=== PATIENT | female | born 1940 | race Caucasian/White ===

== ENCOUNTER 2016-07-25 10:25 | Emergency (ER) | payer MEDICARE, MEDICAID ==
--- NOTE | 2016-07-25 11:43 | RAD ---
History: Fall with left-sided pain. Comparison: 06/09/2011. Technique: 2 views Findings: Multiple thoracic compression deformities are visualized with evidence of a severe compression of the T8 vertebral body which is progressed since the prior exam of 06/09/2011. A thoracic scoliotic deformity is observed. The heart size is stable. There appears to be a healed deformity of the proximal right humerus. No consolidation, effusion or pneumothorax is visualized. The hilar and mediastinal structures are intact. Impression: 1. Multiple thoracic compression deformities including a severe T8 compression which is progressed since the prior exam of 06/09/2011. 2. A healed fracture deformity of the proximal right humerus. 3. A thoracic scoliotic deformity. 4. No active intrathoracic process.
== END 2016-07-25 12:16 | disposition home or self-care (01) ==
LOC: ED 10:25
DX: S20.219A Contusion of unspecified front wall of thorax, initial encounter (principal); I10 Essential (primary) hypertension; W01.0XXA Fall on same level from slipping, tripping and stumbling without subsequent striking against object, initial encounter; Y92.9 Unspecified place or not applicable

== ENCOUNTER 2016-08-05 11:51 | Emergency (ER) | payer MEDICARE, MEDICAID ==
[2016-08-05] MEDS ORDERED: IOPAMIDOL 370 (76%) IV.SOLN 150 ML IV ONE (11:52)
[2016-08-05 13:04] LABS: ABSOLUTE NEUTROPHIL COUNT 3.5 K/mm3 (1.8-7.7); BASO % 0.6 % (0.2-1.0); EOS # 0.1 (0.0-0.5); HEMATOCRIT 41.1 % (37.0-47.0); HEMOGLOBIN 13.5 gm/l (12.0-16.0); IMM NEUT% 0.4 % (0-1); LYMPH # 1.3 (1.0-4.8); MEAN CELL VOLUME 105.9 fl (81.0-99.0); MEAN CORPUSCULAR HEMOGLOBIN 34.8 pg (27.0-31.0); MEAN CORPUSCULAR HGB CONC 32.8 g/dl (33.0-37.0); MEAN PLATELET VOLUME 9.4 fl (7.4-10.4); MONO # 0.4 (0.0-0.8); MONO % 7.4 % (4-12); NEUT % 65.6 % (43-75); PLATELET COUNT 201 K/mm3 (130-400); RED CELL DISTRIBUTION WIDTH 12.9 % (11.5-14.5)
[2016-08-05 13:18] LABS: PROTHROMBIN TIME 10.5 SECONDS (9.3-11.4)
[2016-08-05] MEDS ORDERED: SODIUM CHLORIDE 0.9% 1,000 ML ONE (13:22)
[2016-08-05 13:27] LABS: ALB/GLOB RATIO 1.4 (>1.0); ALBUMIN 4.7 gm/dL (3.5-5.7); CALCIUM 10.8 mg/dL (8.6-10.3)
--- NOTE | 2016-08-05 14:36 | CT ---
EXAMINATION: Contrast enhanced CT scan of the abdomen and pelvis. CLINICAL INDICATION: Left-sided flank and back pain following fall injury. Initial encounter. COMPARISON: CT scan of the pelvis dated 01/23/2016 was reviewed. TECHNIQUE: Oral contrast: None Following uneventful administration of 125 mL of Isovue 370, intravenously axial images were acquired from just above the domes of the diaphragm to the iliac crest. A CT scan of the pelvis was also obtained from the iliac crest to the initial tuberosities. Stacked axial, sagittal, and coronal images were reviewed. Findings: Abdomen CT: (Contrast-enhanced): Lung bases exhibit mild basilar pleural/peripheral scarring and minimal atelectasis. No mass or consolidation or effusion is identified. The liver is unremarkable. The common bile duct is dilated. The gallbladder is markedly distended. Pericholecystic fluid is also noted. The spleen size and attenuation are within normal limits. No peripancreatic inflammatory stranding is identified. Pancreatic duct is slightly prominent. Adrenals exhibit a hypertrophic appearance. Kidneys are without solid mass or hydronephrosis. There is a left renal cyst that measures 3.5 x 2.6 cm. Atherosclerotic plaquing of the abdominal aorta is present with no aneurysmal dilatation. The stomach is unremarkable. The visualized segments of small and large bowel are within normal limits. There is a compression fracture of T12. There is very minimal retropulsion. This appears old. Endplate infraction/compression deformities of T11 and T10 are noted as well. Pelvic CT: (Contrast -enhanced): The distal ureters and bladder are unremarkable. The uterus is unremarkable. There are no adnexal masses. No adenopathy is identified. The distal abdominal aorta and iliac vessels are within normal limits. There is diverticulosis of the colon without evidence of acute diverticulitis. Fluid-filled loops of small bowel are noted. There is no free fluid. No inflammatory stranding is seen adjacent to the cecum. Posttraumatic deformity of the left ischial tuberosity is noted. ORIF left hip fracture is also evident. Spondylosis changes are noted at L4-5 with anterolisthesis of L4 on L5. Moderate facet arthropathy involves a segment. The overlying soft tissues are unremarkable. IMPRESSION: 1. Markedly distended gallbladder with prominent biliary tree and pancreatic duct. Findings do raise a question of obstructive cholecystitis. 2. Left renal cyst. 3. Atherosclerosis. 4. Posttraumatic deformities of the osseous structures. No acute fracture is appreciated. ORIF changes left hip are evident. 5. Distended urinary bladder. 6. Diverticulosis without evidence of acute diverticulitis. 7. Compression fractures T10, T11 and greatest at T12. These are of uncertain age. 8. Spondylosis changes L4-5. There is bilateral neural encroachment and central stenosis at this segment. The findings were uploaded to the electronic medical record for review at approximately 2:34 PM 08/05/2016
== END 2016-08-05 15:18 | disposition home or self-care (01) ==
LOC: ED 11:51
DX: M54.5 Low back pain (principal); I10 Essential (primary) hypertension; Z53.21 Procedure and treatment not carried out due to patient leaving prior to being seen by health care provider
CPT/HCPCS: 80307 ×2; 85025; 80053; 85610; 74177; 99284 ×2; 96360; 96361; J7030; Q9967

== ENCOUNTER 2016-08-05 17:21 | Inpatient (IN) | payer MEDICARE, MEDICAID ==
[2016-08-05] MEDS ORDERED: IV START KIT ONE (17:45)
[2016-08-05] MEDS ORDERED: SODIUM CHLORIDE 0.9% FLUSH 10 ML ONE (17:45)
[2016-08-05] MEDS ORDERED: BISACODYL 10 MG SUP PR PRN (18:02)
[2016-08-05] MEDS ORDERED: MENTHOL/CETYLPYRD 1 EACH LOZENGE PO PRN (18:02)
[2016-08-05] MEDS ORDERED: MAGNESIUM HYDROXIDE 30 ML UDCUP PO PRN (18:02)
[2016-08-05] MEDS ORDERED: BISACODYL 5 MG TABLET.EC PO PRN (18:02)
[2016-08-05] MEDS ORDERED: BLISTEX LIPSTICK 1 EACH TP PRN (18:02)
[2016-08-05] MEDS ORDERED: SODIUM CHLORIDE 0.9% 100 ML IV PRN (18:02)
[2016-08-05] MEDS ORDERED: FLU VACC 2016-17 (65 YR+)/PF 180 MCG/0.5 ML SYRINGE IM V ONE (18:13)
[2016-08-05] MEDS ORDERED: D5W IV ONE (19:00)
[2016-08-05] MEDS ORDERED: ACETYLCYSTEINE IV ONE (19:00)
[2016-08-05 19:06] VITALS: BMI 23.1
[2016-08-05] MEDS: LISINOPRIL 20 MG TABLET PO SCH (19:09)
[2016-08-05] MEDS ORDERED: TRAMADOL HCL 50 MG TABLET PO PRN (19:21)
[2016-08-05] MEDS ORDERED: PUMP TUBING ONE (19:26)
[2016-08-05] MEDS ORDERED: ACETYLCYSTEINE 3,400 MG in D5W 500 ML IV ONE (20:30)
[2016-08-05] MEDS: DIPHENHYDRAMINE HCL 25 MG CAPSULE PO PRN ×2 (20:44→21:51)
[2016-08-05] MEDS ORDERED: ONDANSETRON 4 MG/2ML 2 ML VIAL IV PRN (20:56)
[2016-08-05] MEDS ORDERED: ENOXAPARIN SODIUM 40 MG/0.4 ML SYRINGE SUB-Q SCH (21:00)
[2016-08-05] MEDS ORDERED: METOPROLOL TARTRATE 50 MG TABLET PO SCH (21:00)
[2016-08-05] MEDS: DOCUSATE SODIUM 100 MG CAPSULE PO SCH (21:58)
[2016-08-05] MEDS ORDERED: METOPROLOL TARTRATE 25 MG TABLET PO ONE (22:07)
--- NOTE | 2016-08-05 22:19 | HP ---
TIN GOODE [id number] DATE OF : 1940 DATE OF ADMISSION: 08/05/2016 PRIMARY CARE PROVIDER: Dr. Don, though she has not been seen by him in some time. CHIEF COMPLAINT: Right flank pain. HISTORY OF PRESENT ILLNESS: The patient is a 76-year-old female who came to the emergency department today because ten days ago she had fallen, injuring her right side. A chest x-ray at that time showed no acute injury. She has continued to have some pain in this area which was worse today. The patient came into the emergency room because of this worsening pain and workup was essentially negative, however, the patient states that she has been taking up to 12 grams of Tylenol over the past 24 hours. She is unclear as to exactly how much of the Tylenol she has been taking. She notes she has been taking it for the past 24 hours continuously in an effort to stop the pain and has been unsuccessful. She has no other pain medications at home. In the emergency department, Poison Control was consulted. Her Tylenol level was therapeutic, but not elevated, however, Poison Control recommended that given her history she should be admitted and placed on acetylcysteine protocol. The patient actually declined admission initially, stating that she had possibly left some space heaters on at home and needed to go care for her cats and turn off those space heaters before she could be admitted. She thus left the ER AMA for several hours. She did sign AMA paperwork and promised to return. She did then return to the hospital and instead of going to the ER was actually directly admitted to the floor based off of the previous ER workup and recommendations. The patient currently denies any abdominal pain, nausea or vomiting. She is feeling relatively well. She does still have flank pain on the right, but states that this is nothing new and has been ongoing for approximately one year. She is frustrated that people are wanting to give her medications for this, but is not actually correcting this. She states that physical therapy has been helpful for this in the past. PAST MEDICAL HISTORY: Positive for: 1. Hypertension. She is not currently on her home medications, as she has not been seen by her primary care provider in too long and he will not refill them for her. 2. She also has a history of spastic dysphagia. 3. The patient had a pelvic fracture in 2015, as she fell out of a tree while trying to pick figs. She did not have any surgery for this however, ALLERGIES: No known drug allergies. PAST SURGICAL HISTORY: Positive for an ORIF of the right leg in 1969 after a fracture skydiving. MEDICATIONS: The patient was in the past on metoprolol 50 mg XR by mouth daily and Lisinopril 20 mg by mouth daily. She has been off of these since February, as she has not been able to get in to see her primary care provider. SOCIAL HISTORY: The patient lives alone. She has one cat. She denies alcohol use. She denies any smoking. She does, however, smoke marijuana, about one joint every three to four days. FAMILY HISTORY: Essentially negative. She states her father had some heart troubles, but otherwise family history is noncontributory. REVIEW OF SYSTEMS: A full 14-point review of systems reports that the patient has some back pain. She had a fall ten days ago, with some injury and recurrent pain, but she has no numbness, no weakness and no falls since ten days ago. She denies any abdominal pain, nausea or vomiting. She denies any diarrhea. She is feeling generally okay. All other review of systems are negative, except as per HPI. PHYSICAL EXAMINATION: VITAL SIGNS: In the ER the patient's blood pressure is 186/103. Pulse is 90. Respiratory rate is 16, satting 99% on room air. Her temperature is 98.0. GENERAL: Patient is lying in bed in no acute distress. She does not appear to be in pain. HEENT: Head is normocephalic, atraumatic. Mucous membranes are moist. Oropharynx is clear. LUNGS: Clear to auscultation bilaterally. No wheezes, rales or rhonchi. HEART: Regular rate and rhythm. No murmurs or rubs. Positive S1, S2. ABDOMEN: Soft, nontender and nondistended. Positive bowel sounds. No hepatosplenomegaly. NEUROLOGIC: Patient is awake, alert and oriented. She is moving all of her extremities. Muscle strength appears to be intact. SKIN: Warm, dry and intact. PSYCHIATRIC: Patient's affect is full and appropriate. STUDIES AND LABS: A CBC shows a white count of 5.4, hemoglobin 13.5, hematocrit 41.4 and a platelet count of 201, with no left shift. INR is 1.00. Acetaminophen level was 58. CMP shows a glucose of 112, BUN of 20, creatinine 0.7 and GFR of 82. Sodium is 140, potassium 3.8, chloride is 103, carbon dioxide is 26 and calcium is 10.8. AST is 24 and ALT is 18. Alkaline phosphatase is 81 and bilirubin is 0.5. IMAGING: The patient did have a CT scan of the abdomen and pelvis, which showed a markedly distended gallbladder, without any acute cholecystitis findings and no acute fracture. She also has compression fractures of T10, T11 and T12 of uncertain age. ASSESSMENT/PLAN: 1. Tylenol overdose. The patient had an inadvertent Tylenol overdose, which is coming from an unclear history. Her Tylenol level was essentially normal or therapeutic, however, given her history a Poison Control recommendation was for acetylcysteine protocol, and thus she is placed onto that protocol for a total of 21 hours. We will be monitoring the lab work as per protocol. I anticipate her going home tomorrow after the protocol is complete, with recommendations to discontinue the Tylenol. 2. Back pain. The patient has chronic back pain which was acutely exacerbated by a fall ten days ago. I am going to consult PT, as she seems very interested in engaging with PT for management of this back pain. I will give her pain medications of a small dose of oxycodone if necessary, but will hold it unless she requests it. 3. Hypertension. The patient does have hypertension. She has been off of her hypertension medication since February. I am going to restart her on her Lisinopril to try and bring her blood pressure down. If her blood pressure does not respond accordingly, then will restart her metoprolol as well. 4. DVT prophylaxis. The patient will be placed on Lovenox. 5. Code status. The patient is full code. cc: Dr. Tigre Don
[2016-08-06] MEDS ORDERED: ACETYLCYSTEINE 6,800 MG in D5W 1,000 ML IV ONE (00:30)
[2016-08-06 06:15] LABS: ABSOLUTE NEUTROPHIL COUNT 3.8 K/mm3 (1.8-7.7); BASO % 0.5 % (0.2-1.0); EOS # 0.2 (0.0-0.5); EOS % 2.4 % (0.9-2.9); HEMATOCRIT 34.7 % (37.0-47.0); HEMOGLOBIN 11.5 gm/l (12.0-16.0); IMM NEUT% 0.3 % (0-1); LYMPH # 1.9 (1.0-4.8); MEAN CELL VOLUME 103.3 fl (81.0-99.0); MEAN CORPUSCULAR HEMOGLOBIN 34.2 pg (27.0-31.0); MEAN CORPUSCULAR HGB CONC 33.1 g/dl (33.0-37.0); MONO # 0.7 (0.0-0.8); NEUT % 57.8 % (43-75); PLATELET COUNT 166 K/mm3 (130-400); RED CELL DISTRIBUTION WIDTH 12.4 % (11.5-14.5)
[2016-08-06 06:28] LABS: ALB/GLOB RATIO 1.3 (>1.0); ALBUMIN 3.5 gm/dL (3.5-5.7); CALCIUM 9.3 mg/dL (8.6-10.3)
[2016-08-06] MEDS: METOPROLOL TARTRATE 50 MG TABLET PO SCH ×2 (08:20→17:00)
[2016-08-06] MEDS: LISINOPRIL 20 MG TABLET PO SCH (08:20)
[2016-08-06] MEDS: DOCUSATE SODIUM 100 MG CAPSULE PO SCH (08:21)
--- NOTE | 2016-08-06 10:01 | PDOC5 ---
ADMIT DATE: 08/05/16 DISCHARGE DATE: 08/06/16 ADMISSION DIAGNOSES: unintentional tylenol overdose Hypertension back pain compression fractures thoracic spine - uncertain acuity PROCEDURES PERFORMED THIS HOSPITALIZATION: none CONSULTATIONS: [facility] poison control center HOSPITAL COURSE: This is a 76 year old who presented to the ER due to unrelenting back pain after fall 10 days prior. During ER eval she was noted to have taken up to 12grams acetaminophen in past 24 hours. tylenol level was therapeutic but not high, however poison control center recommended NAC protocol. Pt initially left the ER AMA to go home and turn off space heaters as well as to care for her cat. She did return within several hours however, and was admitted directly to the floor for NAC protocol. Her follow up labs were negative, and NAC protocol completed. was safe for DC home. She has chronic back pain, acutely worse after fall 10 days prior. she was taking tylenol for this, though it was not helping. pt given rx for tramadol on DC, and instructed not to take tylenol for pain. She had eval with PT, which she states has been helpful in the past. Outpt Pt would be helpful for her as well. On CT scan she had a number of thoracic spine compression fractures, of uncertain acuity. She has HTN, and has been off her home meds since february. She was restarted on metoprolol and lisinopril for her BP, with some good effects. ebcause of continued high BP, her metoprolol was increased to 100mg BID. rx given to pt for the same on DC. - Exam Vital Signs Temperature 98.8 F 08/06/16 07:51 Pulse Rate 77 08/06/16 07:51 Respiratory Rate 18 08/06/16 07:51 Blood Pressure 152/106 08/06/16 07:51 O2 Saturation by Pulse Oximetry 98 08/06/16 07:51 Oxygen Delivery Method Room Air Oxygen Flow Rate 0 General: Alert, Oriented x3, Cooperative HEENT: Atraumatic, Mucous membr. moist/pink Lungs: Clear to Auscultation Bilaterally, Normal Air Movement, No Diminished at Bases Cardiovascular: Regular Rate and Rhythm, Normal S1, Normal S2, No Murmur Abdomen: Soft, Normal Bowel Sounds, Non-Distended, No Tenderness Extremities: No Cyanosis, No Edema, No Tenderness Skin: Warm, Dry, Intact Neurological: Normal Speech Psych/Mental Status: Normal Affect, Normal Mood - Results Laboratory 08/06/16 05:45 08/06/16 05:45 08/06/16 05:45 RBC 3.36 L MCV 103.3 H MCH 34.2 H Total Protein 6.3 L - Problems:Assessment/Plan (1) Hypertension Qualifiers: Hypertension type: essential hypertension Qualifier Code: (I10) Essential (primary) hypertension Status: ChronicAssessment/Plan: uncontrolled as she has been off her home meds placed back on home dose, increased metoprolol to 100mg BID last night due to elevated BPs. to DC home on the same (2) Tylenol overdose Qualifiers: Encounter type: initial encounter Injury intent: accidental or unintentional Qualifier Code: (T39.1X1A) Poisoning by 4-Aminophenol derivatives, accidental (unintentional), initial encounter Status: Acute Assessment/Plan: completed NAC protocol. some rash/itching last night, resolved with benadryl, not returned. labs today at 2pm,a nd if normal can go home after protocol done (3) Back pain Qualifiers: Back pain location: thoracic back pain Chronicity: acute Back pain laterality: right Qualifier Code: (M54.6) Pain in thoracic spine Status : AcuteAssessment/Plan: taking tylenol for pain, which has not been effective likely due to compression fractures in thoracic spine, though uncertain acuity on these tramadol for pain for now. PT consulted - Disposition: Disposition: to home today once NAC protocol done - Discharge Plan Forms: Discharge Instructions Follow-Up: Tigre Don MD [Primary Care Provider] - In 7-10 days Condition: Good Disposition: Home
[2016-08-06] MEDS ORDERED: PNEUMOCOCCAL 23-VAL P-SAC VAC 0.5 ML VIAL IM V ONE (12:51)
[2016-08-06 13:24] VITALS: BP 144/92
[2016-08-06 14:33] LABS: ACETAMINOPHEN < 10 ug/ml; ALB/GLOB RATIO 1.3 (>1.0); ALBUMIN 3.7 gm/dL (3.5-5.7); ALT/SGPT 17 U/L (7-52); BLOOD UREA NITROGEN 12 mg/dL (7-25); BUN/CREATININE RATIO 15 (6-20); CALCIUM 9.5 mg/dL (8.6-10.3); GLOMERULAR FILTRATION RATE 70 mL/min (60-75)
[2016-08-06] MEDS ORDERED: CALCIUM CARBONATE 600 MG/VITAMIN D3 400 UNIT/TABLET PO SCH (15:00)
== END 2016-08-06 17:10 | disposition home or self-care (01) | DRG 918 ==
LOC: MS 17:21
PROVIDERS: ADMIT Family Medicine; ATTEND Family Medicine
DX: T39.1X2A Poisoning by 4-Aminophenol derivatives, intentional self-harm, initial encounter (principal); M48.54XA Collapsed vertebra, not elsewhere classified, thoracic region, initial encounter for fracture; Y92.019 Unspecified place in single-family (private) house as the place of occurrence of the external cause; I10 Essential (primary) hypertension; M54.9 Dorsalgia, unspecified